=== PATIENT | male | born 1975 | race African-American/Black ===

== ENCOUNTER 2022-03-10 06:56 | Inpatient (IN) | payer BC ==
[~2022-03-10] VITALS: Ht 182.9 cm; Wt 112.5 kg
[2022-03-10 07:35] LABS: APPEARANCE,URINE CLEAR (CLEAR); BILIRUBIN,URINE NEGATIVE (NEGATIVE); COLOR,URINE LIGHT-YELLOW (YELLOW); GLUCOSE, URINE (UA) TRACE mg/dL (NEGATIVE); KETONES,URINE NEGATIVE (NEGATIVE); LEUKOCYTE ESTERASE ,URINE NEGATIVE Leu/uL (NEGATIVE); NITRATE,URINE NEGATIVE (NEGATIVE); OCCULT BLOOD,URINE NEGATIVE (NEGATIVE); PROTEIN,URINE 10 mg/dL (NEGATIVE); UROBILINOGEN,URINE 0.2 mg/dL (0.2-1.0)
[2022-03-10 07:40] LABS: MUCUS,URINE RARE LPF (None Seen); RBC,URINE 0-1 /HPF (0-1); SQUAMOUS EPITHELIAL CELL,UR RARE /HPF (0-2)
[2022-03-10] MEDS ORDERED: LORAZEPAM 2 MG/ML 1 ML VIAL IVP ONE ×2 (08:00→10:30)
[2022-03-10] MEDS ORDERED: NICARDIPINE 25MG INJ 50 MG in 0.9% NACL 250ML 230 ML IV SCH (08:00)
[2022-03-10] MEDS ORDERED: MORPHINE 4 MG SYG IVP ONE (08:00)
[2022-03-10] MEDS ORDERED: PROMETHAZINE HCL 25 MG/ML 1ML AMPULE SCH (08:00)
[2022-03-10 08:25] LABS: BASOPHILS % (AUTO) 0.6 % (0.0-5.0); EOSINOPHILS % (AUTO) 5.3 % (0.0-8.0); HEMATOCRIT 40.3 % (42-54); LYMPHOCYTES % (AUTO) 42.4 % (21.0-51.0); MEAN CORPUSCULAR HEMOGLOBIN 29.2 pg (27.0-33.0); MEAN CORPUSCULAR HGB CONC 33.7 g/dL (32.0-36.0); MEAN CORPUSCULAR VOLUME 86.5 fL (79-99); MONOCYTES % (AUTO) 5.5 % (3.0-13.0); PLATELET COUNT (AUTO) 134 K/uL (130-400); RED BLOOD CELL COUNT(AUTO) 4.66 MIL/uL (4.50-6.20); RED CELL DISTRIBUTION WIDTH 14.2 % (11.0-15.5); WHITE BLOOD COUNT (AUTO) 4.9 K/uL (4.8-10.8)
[2022-03-10] MEDS ORDERED: DiphenhydrAMINE HCL 50 MG/ML VIAL IV ONE ×2 (08:30→16:00)
[2022-03-10 08:38] LABS: CREATININE 2.7 mg/dL (0.5-1.5); POTASSIUM 3.4 mmol/L (3.5-5.1)
[2022-03-10 08:43] LABS: ALBUMIN 3.5 g/dL (3.5-5.0); TOTAL PROTEIN, SERUM 7.1 g/dL (6.0-8.3)
[2022-03-10] MEDS: POLYETHYLENE GLYCOL 3350 17 GM POWD.PACK PO SCH ×3 (13:00→15:12)
[2022-03-10] MEDS ORDERED: ONDANSETRON 4MG INJ IV PRN (13:00)
[2022-03-10] MEDS: LUBIPROSTONE 24 MCG CAP PO SCH ×2 (13:00→15:11)
[2022-03-10] MEDS ORDERED: ACETAMINOPHEN 325 MG TAB PO PRN ×2 (13:00)
[2022-03-10] MEDS ORDERED: POTASSIUM CHLORIDE 10% ELIXIR 20 MEQ/15 ML UDCUP PO PRN (13:30)
[2022-03-10] MEDS ORDERED: KCL 20 MEQ ERTAB PO PRN (13:30)
[2022-03-10] MEDS ORDERED: POTASSIUM CHLORIDE 10MEQ/100ML 100 ML IV PRN (13:30)
[2022-03-10] MEDS ORDERED: LIDOCAINE HCL-MPF 1% 2ML VIAL IV PRN (13:30)
[2022-03-10] MEDS ORDERED: NIFEDIPINE ER 30 MG TAB PO SCH ×2 (13:30→13:45)
[2022-03-10 13:52] LABS: HEMOGLOBIN A1C 9.4 % (4.0-6.0)
[2022-03-10 14:20] LABS: MAGNESIUM 1.9 mg/dL (1.80-2.40); THYROID STIMULATING HORMONE 1.06 uIU/mL (0.36-3.74)
[2022-03-10] MEDS ORDERED: MORPHINE 2 MG SYG IVP PRN (15:00)
[2022-03-10 17:00] VITALS: BP 173/108
[2022-03-10] MEDS ORDERED: LABETALOL HCL 200 MG TABLET PO SCH (21:00)
== END 2022-03-10 17:28 | disposition left against medical advice (07) | DRG 683 ==
LOC: EDH 06:56 → EDHIP 12:57
PROVIDERS: ADMIT Internal Medicine; ATTEND Internal Medicine
DX: N17.9 Acute kidney failure, unspecified (principal); E87.1 Hypo-osmolality and hyponatremia; I16.0 Hypertensive urgency; R07.89 Other chest pain; E11.22 Type 2 diabetes mellitus with diabetic chronic kidney disease; E11.65 Type 2 diabetes mellitus with hyperglycemia; E87.6 Hypokalemia; F41.9 Anxiety disorder, unspecified; I12.9 Hypertensive chronic kidney disease with stage 1 through stage 4 chronic kidney disease, or unspecified chronic kidney disease; K56.41 Fecal impaction; N18.9 Chronic kidney disease, unspecified; N40.0 Benign prostatic hyperplasia without lower urinary tract symptoms; Z87.442 Personal history of urinary calculi; Z88.8 Allergy status to other drugs, medicaments and biological substances
CPT/HCPCS: 36415; 71045; 74176; 80053; 81001; 83036; 83735; 83880; 84443; 84484; 85025; 93005; G0378; J1200; J2060; J2270; J2550; J3490; J7050

== ENCOUNTER 2023-02-09 21:08 | Inpatient (IN) | payer BC, OTHER ==
[~2023-02-09] VITALS: Ht 182.9 cm; Wt 120.9 kg
[2023-02-09 22:44] LABS: APPEARANCE,URINE CLEAR (CLEAR); BILIRUBIN,URINE NEGATIVE (NEGATIVE); COLOR,URINE LIGHT-YELLOW (YELLOW); GLUCOSE, URINE (UA) >=1000 mg/dL (NEGATIVE); KETONES,URINE NEGATIVE (NEGATIVE); LEUKOCYTE ESTERASE ,URINE 500 Leu/uL (NEGATIVE); NITRATE,URINE NEGATIVE (NEGATIVE); OCCULT BLOOD,URINE SMALL (NEGATIVE); PROTEIN,URINE NEGATIVE (NEGATIVE); UROBILINOGEN,URINE 0.2 mg/dL (0.2-1.0)
[2023-02-09 22:47] LABS: ADD UA MICROSCOPIC YES
[2023-02-09 22:49] LABS: RBC,URINE 26-50 /HPF (0-1); SQUAMOUS EPITHELIAL CELL,UR RARE /HPF (0-2); WBC,URINE 51-100 /HPF (0-1)
[2023-02-09 22:54] LABS: BASOPHILS # (AUTO) 0.02 K/uL (0.00-0.20); BASOPHILS % (AUTO) 0.3 % (0.0-5.0); EOSINOPHILS # (AUTO) 0.04 K/uL (0.00-0.70); EOSINOPHILS % (AUTO) 0.5 % (0.0-8.0); HEMATOCRIT 44.2 % (42-54); IMMATURE GRANULOCYTE ABSOLUTE 0.04 K/uL (0-1); LYMPHOCYTES # (AUTO) 1.3 K/uL (1.0-4.8); LYMPHOCYTES % (AUTO) 17.9 % (21.0-51.0); MEAN CORPUSCULAR HEMOGLOBIN 30.2 pg (27.0-33.0); MEAN CORPUSCULAR HGB CONC 33.3 g/dL (32.0-36.0); MEAN CORPUSCULAR VOLUME 90.8 fL (79-99); MONOCYTES # (AUTO) 0.4 K/uL (0.1-1.0); MONOCYTES % (AUTO) 5.4 % (3.0-13.0); NEUTROPHILS # (AUTO) 5.6 K/uL (1.8-7.7); NEUTROPHILS % (AUTO) 75.4 % (40.0-77.0); PLATELET COUNT (AUTO) 159 K/uL (130-400); RED BLOOD CELL COUNT(AUTO) 4.87 MIL/uL (4.50-6.20); RED CELL DISTRIBUTION WIDTH 12.9 % (11.0-15.5); WHITE BLOOD COUNT (AUTO) 7.4 K/uL (4.8-10.8)
[2023-02-09 23:05] LABS: CREATININE 2.4 mg/dL (0.5-1.5); POTASSIUM 5.6 mmol/L (3.5-5.1)
[2023-02-09 23:07] LABS: INR < 0.93 (0.85-1.15); PROTHROMBIN TIME 10.7 SEC (9.6-11.6)
[2023-02-09 23:08] LABS: PARTIAL THROMBOPLASTIN TIME 29.6 SEC (26.3-35.5)
[2023-02-09 23:12] LABS: ALBUMIN 3.5 g/dL (3.5-5.0); BILIRUBIN,TOTAL 0.6 mg/dL (0.2-1.0); TOTAL PROTEIN, SERUM 7.6 g/dL (6.0-8.3)
[2023-02-09] MEDS ORDERED: CEFTRIAXONE 1G VIAL IVPB ONE (23:30)
[2023-02-09] MEDS ORDERED: KETOROLAC 30MG VIAL (30MG/ML) IVP ONE (23:30)
[2023-02-09 23:51] LABS: B-TYPE NATRIURETIC PEPTIDE 59 pg/mL (0-100)
[2023-02-10] MEDS ORDERED: HYDROMORPHONE 0.5 MG SYG (0.5MG/0.5ML) IVP ONE (00:30)
[2023-02-10] MEDS ORDERED: SOLU-MEDROL 125MG VIAL IVP ONE (00:30)
[2023-02-10] MEDS ORDERED: DiphenhydrAMINE HCL 50 MG/ML VIAL IV ONE (00:30)
[2023-02-10] MEDS ORDERED: LABETALOL 20MG VIAL IV ONE ×2 (01:30→02:30)
[2023-02-10] MEDS: HYDROMORPHONE 0.5 MG SYG (0.5MG/0.5ML) IVP PRN ×2 (04:52→08:58)
[2023-02-10] MEDS ORDERED: ONDANSETRON 4MG INJ IV PRN (05:30)
[2023-02-10] MEDS ORDERED: LEVOFLOXACIN 500 MG/D5W 100 ML 100 ML IV SCH (05:30)
[2023-02-10] MEDS ORDERED: NITROGLYCERIN 0.4 MG SL TAB SL PRN ×2 (05:30→06:00)
[2023-02-10] MEDS ORDERED: 0.9%NACL 1000ML 1,000 ML IV SCH (05:30)
[2023-02-10 06:15] VITALS: BP 174/118; PULSE 87; RESP 18
[2023-02-10] MEDS: LABETALOL 20MG VIAL IV PRN ×2 (06:45→11:28)
[2023-02-10 06:54] LABS: HEMOGLOBIN A1C 12.2 % (4.0-6.0)
[2023-02-10] MEDS ORDERED: [UNRECOGNIZED DRUG - REMARK] SQ (06:54)
[2023-02-10] MEDS ORDERED: CARV25TA PO (06:54)
[2023-02-10] MEDS ORDERED: FURO80TA87 PO (06:54)
[2023-02-10] MEDS ORDERED: HYDR20TA PO ×2 (06:54)
[2023-02-10] MEDS ORDERED: TOPI100T31 PO (06:54)
[2023-02-10] MEDS ORDERED: APIX5TAB PO (06:54)
[2023-02-10] MEDS ORDERED: NIFE-40 PO (06:54)
[2023-02-10] MEDS ORDERED: ALPR2TAB2 PO (06:54)
[2023-02-10 06:59] LABS: ALBUMIN 3.4 g/dL (3.5-5.0); BILIRUBIN,TOTAL 0.6 mg/dL (0.2-1.0); CREATININE 2.6 mg/dL (0.5-1.5); MAGNESIUM 1.8 mg/dL (1.80-2.40); POTASSIUM 5.5 mmol/L (3.5-5.1); THYROID STIMULATING HORMONE 0.3 uIU/mL (0.36-3.74); TOTAL PROTEIN, SERUM 7.7 g/dL (6.0-8.3)
[2023-02-10 07:28] LABS: BASOPHILS # (AUTO) 0.01 K/uL (0.00-0.20); BASOPHILS % (AUTO) 0.1 % (0.0-5.0); HEMATOCRIT 41.4 % (42-54); IMMATURE GRANULOCYTE ABSOLUTE 0.05 K/uL (0-1); LYMPHOCYTES # (AUTO) 0.7 K/uL (1.0-4.8); LYMPHOCYTES % (AUTO) 7.7 % (21.0-51.0); MEAN CORPUSCULAR HEMOGLOBIN 30.1 pg (27.0-33.0); MEAN CORPUSCULAR HGB CONC 34.1 g/dL (32.0-36.0); MEAN CORPUSCULAR VOLUME 88.5 fL (79-99); MONOCYTES # (AUTO) 0.1 K/uL (0.1-1.0); MONOCYTES % (AUTO) 0.7 % (3.0-13.0); NEUTROPHILS # (AUTO) 8.3 K/uL (1.8-7.7); NEUTROPHILS % (AUTO) 90.9 % (40.0-77.0); PLATELET COUNT (AUTO) 146 K/uL (130-400); RED BLOOD CELL COUNT(AUTO) 4.68 MIL/uL (4.50-6.20); RED CELL DISTRIBUTION WIDTH 12.9 % (11.0-15.5); WHITE BLOOD COUNT (AUTO) 9.1 K/uL (4.8-10.8)
[2023-02-10] MEDS ORDERED: INSULIN HUMULIN R 100 UNIT/ML 3ML SQ SCH ×2 (07:30→11:30)
[2023-02-10 08:00] VITALS: O2SAT 96
[2023-02-10 08:10] VITALS: BP 166/97; PULSE 80; RESP 18
[2023-02-10] MEDS ORDERED: FAMOTIDINE 20MG VIAL IV SCH (09:00)
[2023-02-10] MEDS ORDERED: PHARMACY COMMUNICATION MISC SCH (09:00)
[2023-02-10] MEDS ORDERED: GLUCAGON 1MG KIT 1 MG ML IM PRN (10:00)
[2023-02-10] MEDS ORDERED: DEXTROSE 50%-WATER 50 ML DISP.SYRIN IV PRN (10:00)
[2023-02-10] MEDS ORDERED: DIPHENHYDRAMINE HCL 25 MG CAPSULE PO PRN (10:30)
[2023-02-10 11:28] VITALS: BP 219/139
== END 2023-02-10 11:10 | disposition left against medical advice (07) | DRG 690 ==
LOC: EDH 21:08 → EDHIP 21:09 → 2AH 02-10 05:55
PROVIDERS: ADMIT Internal Medicine; ATTEND Internal Medicine
DX: N39.0 Urinary tract infection, site not specified (principal); E11.65 Type 2 diabetes mellitus with hyperglycemia; E26.9 Hyperaldosteronism, unspecified; E87.5 Hyperkalemia; G89.29 Other chronic pain; I16.0 Hypertensive urgency; N20.0 Calculus of kidney; N40.0 Benign prostatic hyperplasia without lower urinary tract symptoms; F41.9 Anxiety disorder, unspecified; I12.9 Hypertensive chronic kidney disease with stage 1 through stage 4 chronic kidney disease, or unspecified chronic kidney disease; E11.22 Type 2 diabetes mellitus with diabetic chronic kidney disease; N18.9 Chronic kidney disease, unspecified; Z79.01 Long term (current) use of anticoagulants; Z87.442 Personal history of urinary calculi; Z90.49 Acquired absence of other specified parts of digestive tract; Z88.1 Allergy status to other antibiotic agents; Z88.5 Allergy status to narcotic agent; Z88.8 Allergy status to other drugs, medicaments and biological substances
CPT/HCPCS: 36415; 71045; 74176; 80053; 81001; 82550; 83036; 83735; 83880; 84443; 84484; 85025; 85610; 85730; 87088; 93005; G0378; J0696; J1170; J1200; J1885; J1956; J2930; J3490

== ENCOUNTER 2023-12-10 11:24 | Emergency (ER) | payer OTHER ==
[~2023-12-10] VITALS: Ht 182.9 cm; Wt 128.8 kg
[~2023-12-10 11:24] MED LIST: AMIO200T68 PO; APIX5TAB PO; CARV25TA PO; FURO80TA87 PO; HYDR-4419 PO; HYDR20TA24 PO; LORA2TAB80 PO; NIFE-40 PO; TOPI100T31 PO; [UNRECOGNIZED DRUG - REMARK] SQ
[2023-12-10 11:32] VITALS: BP 154/120; TEMP 97.9
[2023-12-10] MEDS: morPHINE 2 MG SYG IVP ONE ×2 (12:35→14:29)
[2023-12-10] MEDS: ondanSETRON 4MG INJ IVP ONE (12:35)
[2023-12-10 12:49] LABS: BASOPHILS # (AUTO) 0.03 K/uL (0.00-0.20); BASOPHILS % (AUTO) 0.5 % (0.0-5.0); EOSINOPHILS # (AUTO) 0.03 K/uL (0.00-0.70); EOSINOPHILS % (AUTO) 0.5 % (0.0-8.0); HEMATOCRIT 39.6 % (42-54); IMMATURE GRANULOCYTE ABSOLUTE 0.02 K/uL (0-1); LYMPHOCYTES # (AUTO) 2.1 K/uL (1.0-4.8); LYMPHOCYTES % (AUTO) 32.2 % (21.0-51.0); MEAN CORPUSCULAR HEMOGLOBIN 30.3 pg (27.0-33.0); MEAN CORPUSCULAR HGB CONC 34.1 g/dL (32.0-36.0); MEAN CORPUSCULAR VOLUME 88.8 fL (79-99); MONOCYTES # (AUTO) 0.6 K/uL (0.1-1.0); MONOCYTES % (AUTO) 8.8 % (3.0-13.0); NEUTROPHILS # (AUTO) 3.8 K/uL (1.8-7.7); NEUTROPHILS % (AUTO) 57.7 % (40.0-77.0); PLATELET COUNT (AUTO) 199 K/uL (130-400); RED BLOOD CELL COUNT(AUTO) 4.46 MIL/uL (4.50-6.20); WHITE BLOOD COUNT (AUTO) 6.5 K/uL (4.8-10.8)
[2023-12-10] MEDS: FAMOTIDINE 20MG VIAL IV ONE (12:53)
[2023-12-10] MEDS: DiphenhydrAMINE HCL 50 MG/ML VIAL IV ONE ×2 (12:54→14:29)
[2023-12-10 12:57] LABS: POTASSIUM 4.7 mmol/L (3.5-5.1)
[2023-12-10 13:32] LABS: APPEARANCE,URINE CLEAR (CLEAR); BILIRUBIN,URINE NEGATIVE (NEGATIVE); COLOR,URINE LIGHT-YELLOW (YELLOW); GLUCOSE, URINE (UA) NEGATIVE (NEGATIVE); KETONES,URINE NEGATIVE (NEGATIVE); LEUKOCYTE ESTERASE ,URINE NEGATIVE Leu/uL (NEGATIVE); NITRATE,URINE NEGATIVE (NEGATIVE); OCCULT BLOOD,URINE NEGATIVE (NEGATIVE); PH,URINE 5.5 (5.0-8.0); PROTEIN,URINE NEGATIVE (NEGATIVE); UROBILINOGEN,URINE 0.2 mg/dL (0.2-1.0)
[2023-12-10 13:38] LABS: ADD UA MICROSCOPIC NO
[2023-12-10 14:00] VITALS: PULSE 98; RESP 20
== END 2023-12-10 14:44 | disposition home or self-care (01) ==
LOC: EDH 11:24
DX: G89.29 Other chronic pain (principal); R10.84 Generalized abdominal pain; I12.9 Hypertensive chronic kidney disease with stage 1 through stage 4 chronic kidney disease, or unspecified chronic kidney disease; E11.22 Type 2 diabetes mellitus with diabetic chronic kidney disease; N18.4 Chronic kidney disease, stage 4 (severe); E11.65 Type 2 diabetes mellitus with hyperglycemia; E87.1 Hypo-osmolality and hyponatremia; F41.9 Anxiety disorder, unspecified; I48.91 Unspecified atrial fibrillation; Z79.01 Long term (current) use of anticoagulants; Z88.1 Allergy status to other antibiotic agents; Z88.5 Allergy status to narcotic agent; Z90.49 Acquired absence of other specified parts of digestive tract; Z98.890 Other specified postprocedural states
CPT/HCPCS: 99284; 96374; 96375; 80048; 85025; 81003; 36415; 96376; 93005; J1200 ×2; J3490; J2270 ×3; J2405

== ENCOUNTER 2024-07-26 21:36 | Emergency (ER) | payer OTHER ==
[~2024-07-26] VITALS: Ht 182.9 cm; Wt 128.8 kg
[2024-07-26 21:58] LABS: ADD UA MICROSCOPIC YES; APPEARANCE,URINE CLEAR (CLEAR); BILIRUBIN,URINE NEGATIVE (NEGATIVE); COLOR,URINE COLORLESS (YELLOW); GLUCOSE, URINE (UA) >=1000 mg/dL (NEGATIVE); KETONES,URINE NEGATIVE (NEGATIVE); LEUKOCYTE ESTERASE ,URINE NEGATIVE Leu/uL (NEGATIVE); NITRATE,URINE NEGATIVE (NEGATIVE); OCCULT BLOOD,URINE NEGATIVE (NEGATIVE); PROTEIN,URINE NEGATIVE (NEGATIVE); UROBILINOGEN,URINE 0.2 mg/dL (0.2-1.0)
[2024-07-26 21:59] LABS: MUCUS,URINE RARE LPF (None Seen); RBC,URINE 0-1 /HPF (0-1); SQUAMOUS EPITHELIAL CELL,UR RARE /HPF (0-2); WBC,URINE 0-1 /HPF (0-1)
--- NOTE | 2024-07-26 22:04 | EKG ---
[facility] Test Date: 2024-07-26 Test Time: 22:01:47 Pat Name: JET CASTILLO Department: ED Room: Gender: M Disability Counselor: [id number] : [id number] Requested By: OPAL RUGGIERO Order Number: [id number] Reading MD: Shimon Field Measurements Intervals [place] Rate: 111 P: 51 NV: 175 QRS: 13 QRSD: 81 T: 121 QT: 340 QTc: 461 Interpretive Statements Sinus tachycardia Anterior infarct, old Compared to ECG 12/10/2023 11:38:16 No significant changes Electronically Signed On 07-27-2024 16:24:30 CDT by Shimon Field Please click the below link to view image of tracing.
[2024-07-26 22:08] LABS: BASOPHILS # (AUTO) 0.03 K/uL (0.00-0.20); BASOPHILS % (AUTO) 0.5 % (0.0-5.0); EOSINOPHILS # (AUTO) 0.03 K/uL (0.00-0.70); EOSINOPHILS % (AUTO) 0.5 % (0.0-8.0); HEMATOCRIT 38.5 % (42-54); IMMATURE GRANULOCYTE ABSOLUTE 0.05 K/uL (0-1); LYMPHOCYTES # (AUTO) 1.4 K/uL (1.0-4.8); LYMPHOCYTES % (AUTO) 21.3 % (21.0-51.0); MEAN CORPUSCULAR HEMOGLOBIN 30.7 pg (27.0-33.0); MEAN CORPUSCULAR HGB CONC 33.8 g/dL (32.0-36.0); MONOCYTES # (AUTO) 0.6 K/uL (0.1-1.0); MONOCYTES % (AUTO) 9.1 % (3.0-13.0); NEUTROPHILS # (AUTO) 4.3 K/uL (1.8-7.7); NEUTROPHILS % (AUTO) 67.8 % (40.0-77.0); PLATELET COUNT (AUTO) 181 K/uL (130-400); RED BLOOD CELL COUNT(AUTO) 4.23 MIL/uL (4.50-6.20); RED CELL DISTRIBUTION WIDTH 13.7 % (11.0-15.5); WHITE BLOOD COUNT (AUTO) 6.4 K/uL (4.8-10.8)
[2024-07-26 22:29] LABS: BILIRUBIN,TOTAL 0.6 mg/dL (0.2-1.0); TOTAL PROTEIN, SERUM 7.8 g/dL (6.0-8.3)
[2024-07-26] MEDS: LAbetaLOL 20MG SYG IV ONE (22:38)
[2024-07-26] MEDS: morPHINE 2 MG SYG IVP ONE (22:39)
[2024-07-26 22:50] LABS: BILIRUBIN,DIRECT 0.1 mg/dL (0.0-0.3)
[2024-07-26 22:50] LABS: AMPHET/METH SCREEN,URINE NEGATIVE (NEGATIVE); BARBITURATE SCREEN, URINE NEGATIVE (NEGATIVE); BENZODIAZEPINES SCREEN,URINE POSITIVE (NEGATIVE); CANNABINOID SCREEN,URINE NEGATIVE (NEGATIVE); COCAINE SCREEN,URINE NEGATIVE (NEGATIVE); OPIATE SCREEN,URINE NEGATIVE (NEGATIVE); PHENCYCLIDINE SCREEN,URINE NEGATIVE (NEGATIVE)
[2024-07-26] MEDS: 0.9%NACL 1000ML 2,000 ML IV ONE (22:54)
[2024-07-26] MEDS: DiphenhydrAMINE HCL 50 MG/ML VIAL IV ONE ×2 (22:57→23:23)
[2024-07-26 23:03] LABS: ABG BASE EXCESS -5.7 mmol/L (-2.0-3.0); ABG HCO3 17.8 mmol/L (21.0-28.0); ABG OXYGEN SATURATION 97.8 % (94.0-98.0); ABG PCO2 30 mmHg (35-48); ABG PH 7.392 (7.350-7.450); PO2, ARTERIAL BG 103.2 mmHg (83.0-108.0); VENT MODE, BG RA,21 (ROOM AIR)
[2024-07-26 23:50] LABS: CREATININE 3.4 mg/dL (0.5-1.3); POTASSIUM 4.6 mmol/L (3.5-5.1)
[2024-07-27] MEDS: INSULIN humuLIN R 100 UNIT/ML 3ML IV ONE (00:47)
[2024-07-27] MEDS: morPHINE 2 MG SYG IVP ONE (01:18)
[2024-07-27] MEDS: INSULIN humuLIN R 100 UNIT/ML 3ML SQ ONE (02:01)
--- NOTE | 2024-07-27 02:31 | ERN ---
General Chief Complaint: Multiple Complaints Stated Complaint: HIGH BLOOD PRESSURE, HIGH BLOOD SUGAR Time Seen by MD: 21:38 Time Seen by Midlevel: 21:38 Source: patient History of Present Illness Initial Comments The patient is a 48-year-old male with a past medical history of atrial fibrillation, type 2 diabetes, hypertension, UT, DKA, and HHS who presents to the emergency department with multiple complaints. The patient states he had a blood pressure of 248/160 today. His glucose was over 600 when he checked it at home. He reports having one episode of vomiting. Allergies: Coded Allergies: nitroglycerin (Unverified Allergy, Severe, ANAPHYLAXIS, 12/05/21) ceftriaxone (Unverified Allergy, Mild, 02/10/23) codeine (Unverified Allergy, Mild, HIVES, 12/05/21) hydralazine (Unverified Allergy, Mild, HIVES, 12/05/21) GERALDO Inhibitors (Unverified Allergy, Unknown, 03/10/22) ketamine (Unverified Allergy, Unknown, 02/09/23) metoclopramide (Unverified Allergy, Unknown, HIVES, 12/05/21) ondansetron (Unverified Allergy, Unknown, 12/05/21) ANXIETY prochlorperazine (Unverified Allergy, Unknown, 12/05/21) ANXIETY Home Meds Reported Medications Hydrocortisone (Hydrocortisone) 20 Mg Tablet, 20 MG PO DAILY, TAB 09/15/23 Hydrocortisone (Hydrocortisone) 10 Mg Tablet, 10 MG PO HS, TAB 09/15/23 Lorazepam (Ativan) 2 Mg Tablet, 2 MG PO BID PRN for ANXIETY/AGITATION, TAB 09/15/23 Amiodarone HCl (Amiodarone HCl) 200 Mg Tablet, 200 MG PO DAILY, TAB 09/15/23 [Unknown Insulin Pen] No Conflict Check, 60 SQ DAILY 02/10/23 Nifedipine (Nifedipine ER) 30 Mg Tab.er.24, 30 MG PO BID 02/10/23 Topiramate (Topamax) 100 Mg Tablet, 100 MG PO BID, TAB 02/10/23 Apixaban (Eliquis) 5 Mg Tablet, 5 MG PO BID, TAB 02/10/23 Furosemide (Lasix) 80 Mg Tablet, 80 MG PO BID, TAB 02/10/23 Carvedilol (Carvedilol) 25 Mg Tablet, 25 MG PO BID, TAB 02/10/23 Past Medical History Past Medical History: A-Fib, Diabetes-Type II, Hypertension, UT, Other Medical History Other: DKA/HHS, RUBEN'S DISEASE, PANIC ATTACKS Past Surgical History: Other Surgical History Other: BILATERAL ADRENAL GLAND REMOVAL, CARDIAC ABLATION X4, CARDIOVERSION Social History Social History: Negative, Lives with family ROS Dictation CONSTITUTIONAL: Negative except for HPI HEAD/FACE: Negative except for HPI EENT: Negative except for HPI RESPIRATORY: Negative except for HPI GASTROINTESTINAL/ABDOMINAL: Negative except for HPI GENITOURINARY: Negative except for HPI MUSCULOSKELETAL: Negative except for HPI INTEGUMENTARY: Negative except for HPI NEUROLOGICAL/PSYCH: Negative except for HPI HEMATOLOGIC/LYMPHATIC: Negative except for HPI All Systems Negative, Except as noted above. 13 point review of systems assessed and all negative except for above. Physical Exam Physical Exam Dictation Vital Signs reviewed General Appearance: Alert, oriented x 3, no acute distress, well developed, nourished. Head and Face: non-traumatic. Eyes: PERRL, pink conjunctivas, eyelid no trauma, anterior chamber with arcus senilis. Ears: Pinnas intact and no signs of trauma or erythema ear canals clear and no discharge TM no erythema Nose: No discharge, no bleeding. Oropharynx: Mouth normal, tongue pink, pharynx clear,no erythema, tonsils no exudates, no abscesses noted, mucous membrane moist Neck: Supple, non-tender, no thyromegaly, no masses, no JVD, no bruits Breast:Deferred Chest:No tenderness, no crepitus, no paradoxical movement, no retractions Lungs:Clear, well-ventilated, symmetric, no rales, no wheezing, no rhonchi, no stridor, good breath sounds bilaterally Heart: Regular rate, regular rhythm, no murmur, no gallops Vascular: no peripheral edema, Abdomen: Soft, positive bowel sounds, nondistended, no guarding, nontender, no rebound, no masses no hepatomegaly, no splenomegaly, no Loya's sign, no hernias. Rectal: Deferred Genital: Deferred Neurological: Normal speech, motor function intact, sensory function intact Musculoskeletal: Neck nontender, full range of motion, back nontender, full range of motion, Extremities: nontender, full range of motion Skin: Color pink, dry, no turgor, no rash, no lacerations, no abrasions, no contusions. Lymphatic: Deferred Results Laboratory and Microbiology Lab and Micro Result Laboratory Tests Test 07/26/24 21:40 07/26/24 21:54 07/26/24 21:55 07/26/24 23:01 Urine Color COLORLESS (YELLOW) Urine Appearance CLEAR (CLEAR) Urine pH 5.0 (5.0-8.0) Urine Specific Brady 1.025 (1.001-1.031) Urine Protein NEGATIVE mg/dL (NEGATIVE) Urine Glucose (UA) >=1000 mg/dL (NEGATIVE) H Urine Ketones NEGATIVE mg/dL (NEGATIVE) Urine Occult Blood NEGATIVE (NEGATIVE) Urine Nitrate NEGATIVE (NEGATIVE) Urine Bilirubin NEGATIVE mg/dL (NEGATIVE) Urine Urobilinogen 0.2 mg/dL (0.2-1.0) Urine Leukocyte Esterase NEGATIVE Bela/uL Urine RBC 0-1 /HPF (0-1) Urine WBC 0-1 /HPF (0-1) Urine Squamous Epithelial Cells RARE /HPF (0-2) Urine Bacteria None /HPF (None Seen) Urine Opiates Screen NEGATIVE (NEGATIVE) Urine Barbiturates Screen NEGATIVE (NEGATIVE) Urine Phencyclidine Screen NEGATIVE (NEGATIVE) Urine Amphetamines Screen NEGATIVE (NEGATIVE) Urine Benzodiazepines Screen POSITIVE (NEGATIVE) H Urine Cocaine Screen NEGATIVE (NEGATIVE) Urine Marijuana (THC) Screen NEGATIVE (NEGATIVE) Whole Blood Glucose > 600 MG/DL (70-110) *H Bedside Glucose Comment Notified Nurse White Blood Count 6.4 K/uL (4.8-10.8) Red Blood Count 4.23 MIL/uL (4.50-6.20) L Hemoglobin 13.0 g/dL (14.0-18.0) L Hematocrit 38.5 % (42-54) L Mean Corpuscular Volume 91.0 fL (79-99) Mean Corpuscular Hemoglobin 30.7 pg (27.0-33.0) Mean Corpuscular Hemoglobin Concent 33.8 g/dL (32.0-36.0) Red Cell Distribution Width 13.7 % (11.0-15.5) Platelet Count 181 K/uL (130-400) Mean Platelet Volume 11.2 fL (7.5-10.5) H Immature Granulocyte % (Auto) 0.8 % (0-1) Neutrophils (%) (Auto) 67.8 % (40.0-77.0) Lymphocytes (%) (Auto) 21.3 % (21.0-51.0) Monocytes (%) (Auto) 9.1 % (3.0-13.0) Eosinophils (%) (Auto) 0.5 % (0.0-8.0) Basophils (%) (Auto) 0.5 % (0.0-5.0) Neutrophils # (Auto) 4.3 K/uL (1.8-7.7) Lymphocytes # (Auto) 1.4 K/uL (1.0-4.8) Monocytes # (Auto) 0.6 K/uL (0.1-1.0) Eosinophils # (Auto) 0.03 K/uL (0.00-0.70) Basophils # (Auto) 0.03 K/uL (0.00-0.20) Absolute Immature Granulocyte (auto 0.05 K/uL (0-1) Nucleated Red Blood Cells 0.0 % (0.0-0.19) Whole Blood Ketones Quantitative 0.2 mmol/L (0.0-0.6) Total Bilirubin 0.6 mg/dL (0.2-1.0) Direct Bilirubin 0.1 mg/dL (0.0-0.3) Aspartate Amino Transf (AST/SGOT) 31 U/L (10-37) Alanine Aminotransferase (ALT/SGPT) 43 U/L (12-78) Alkaline Phosphatase 121 U/L (50-136) Troponin I High Sensitivity 23 ng/L (4-75) Total Protein 7.8 g/dL (6.0-8.3) Albumin 3.0 g/dL (3.5-5.0) L Lipase 110 U/L (16-77) H Blood Gas Specimen Type Arterial Arterial Blood pH 7.392 (7.350-7.450) Arterial Blood Partial Pressure CO2 30 mmHg (35-48) L Arterial Blood Partial Pressure O2 103.2 mmHg (83.0-108.0) Arterial Blood HCO3 17.8 mmol/L (21.0-28.0) L Arterial Blood Oxygen Saturation 97.8 % (94.0-98.0) Arterial Blood Base Excess -5.7 mmol/L (-2.0-3.0) L Blood Gas Temperature 37.0 CELSIUS (35.5-37.0) Blood Gas Vent Mode RA,21 (ROOM AIR) FiO2 21.0 % Blood Gas Specimen Comment RR,RN ADEN Test 07/26/24 23:15 07/27/24 01:21 Sodium Level 132 mmol/L (136-145) L Potassium Level 4.6 mmol/L (3.5-5.1) Chloride Level 97 mmol/L (101-111) L Carbon Dioxide Level 22 mmol/L (21-32) Blood Urea Nitrogen 37 mg/dL (7-18) H Creatinine 3.4 mg/dL (0.5-1.3) H Glomerular Filtration Rate Calc 21 mL/min (>90) Random Glucose 588 mg/dL (70-105) *H Total Calcium 9.3 mg/dL (8.5-10.1) Total Creatine Kinase 53 U/L (21-232) # Whole Blood Glucose 379 MG/DL (70-110) H Labs Reviewed?: Yes MDM MDM: Differential diagnosis: DKA, HHS, uncontrolled diabetes There are no social concerns with this patient. Prescription drug management Prescriptions will include: None Medical management and examination interpretation discussions were had by me with other qualified healthcare professionals as indicated for the patient's care. ED Course Orders Procedure Category Date Status Time Vital Signs Per CPOE 07/26/24 Transmitted Routine 21:38 Saline Lock Iv CPOE 07/26/24 Transmitted 21:38 Cbc With Differential LAB 07/26/24 Complete 21:38 Lipase LAB 07/26/24 Complete 21:38 Urinalysis Profile LAB 07/26/24 Complete 21:38 12 Lead Ekg Tracing- EKG 07/26/24 Complete Technical 21:38 Troponin I High LAB 07/26/24 Complete Sensitivity 21:38 Hepatic Function Panel LAB 07/26/24 Complete 21:45 Ketone Blood LAB 07/26/24 Complete Quantitative 21:51 Basic Metabolic Panel LAB 07/26/24 Complete 21:38 Creatine Kinase, Total LAB 07/26/24 Complete 21:38 Arterial Blood Gas RT 07/26/24 Transmitted 22:25 Morphine 2mg Syg PHA 07/26/24 Complete (Morphine 2mg Syg) 22:30 Diphenhydramine Hcl PHA 07/26/24 Complete (Benadryl Inj) 22:30 Chest 1vw RAD 07/26/24 Taken 22:25 Labetalol 20mg Syg PHA 07/26/24 Complete (Trandate 20mg Syg) 22:30 Drug Screen Urine LAB 07/26/24 Complete 22:25 0.9%Nacl 1000ml (Ns PHA 07/26/24 Complete 1000ml) 23:00 Arterial Blood Gas LAB 07/26/24 Complete 23:01 Diphenhydramine Hcl PHA 07/26/24 Complete (Benadryl Inj) 23:30 Insulin Regular, PHA 07/27/24 Complete Human 3ml (Humulin R 00:30 Morphine 2mg Syg PHA 07/27/24 Complete (Morphine 2mg Syg) 01:00 Insulin Regular, PHA 07/27/24 Complete Human 3ml (Humulin R 02:00 Current Medications Medications (Trade) Dose Ordered Sig/Taylor Route PRN Reason Start Time Stop Time Status Last Admin Dose Admin Diphenhydramine HCl (BENAdryl INJ) 25 mg ONCE ONCE IV 07/26/24 22:30 07/26/24 22:31 DC 07/26/24 22:57 Diphenhydramine HCl (BENAdryl INJ) 25 mg ONCE ONCE IV 07/26/24 23:30 07/26/24 23:31 DC 07/26/24 23:23 Insulin Human Regular (humuLIN R 100 UNIT/ML 3ML) 5 unit ONCE ONCE SQ 07/27/24 02:00 07/27/24 02:01 DC 07/27/24 02:01 Insulin Human Regular (humuLIN R 100 UNIT/ML 3ML) 10 unit ONCE ONCE IV 07/27/24 00:30 07/27/24 00:31 DC 07/27/24 00:47 Labetalol HCl (TRANdate 20MG SYG) 10 mg ONCE ONCE IV 07/26/24 22:30 07/26/24 22:31 DC 07/26/24 22:38 Morphine Sulfate (morPHINE 2MG SYG) 2 mg ONCE ONCE IVP 07/26/24 22:30 07/26/24 22:34 DC 07/26/24 22:39 Morphine Sulfate (morPHINE 2MG SYG) 2 mg ONCE ONCE IVP 07/27/24 01:00 07/27/24 01:01 DC 07/27/24 01:18 Sodium Chloride 2,000 ml @ 0 mls/hr ONCE ONCE IV 07/26/24 23:00 07/26/24 23:01 DC 07/26/24 22:54 Vital Signs Date Time Temp Pulse Resp B/P (MAP) Pulse Ox O2 Delivery O2 Flow Rate FiO2 07/26/24 22:38 198/112 07/26/24 22:14 98.8 118 25 198/112 98 Room Air* 0 21 07/26/24 21:44 98.8 117 22 219/125 98 Room Air 0 DX & DISP Disposition: Discharge Departure Impression: Primary Impression: Uncontrolled diabetes mellitus with hyperglycemia Additional Impression: Chronic kidney disease Condition: Stable Additional Instructions: Your blood work today showed an elevated sugar. However, you are not in DKA. Please follow up with your primary care doctor for further evaluation. Referrals: SELF,REFERRAL (PCP) Time of Disposition: 02:30 I have reviewed the case, and I agree with, Diagnosis and Plan I performed the substantive portion of the visit. I have reviewed and personally made and approve the management plan that is documented in the note by myself or the TALIB. I acknowledge for responsibility for the patient's management plan. DOMITILA UNGER Jul 27, 2024 02:31
[2024-07-27 02:42] VITALS: BP 160/98; PULSE 82; RESP 18; TEMP 98.2; O2SAT 98
--- NOTE | 2024-07-27 08:29 | HMCIMG ---
Exam Type: CHEST 1VW Clinical Information: cp Comparison: None Findings: The lungs are clear of infiltrates. The heart is normal in size. The bony and soft tissue structures of the chest are unremarkable. Impression: Clear lungs.
== END 2024-07-27 02:43 | disposition home or self-care (01) ==
LOC: EDH 21:36
DX: E11.65 Type 2 diabetes mellitus with hyperglycemia (principal); I12.9 Hypertensive chronic kidney disease with stage 1 through stage 4 chronic kidney disease, or unspecified chronic kidney disease; E11.22 Type 2 diabetes mellitus with diabetic chronic kidney disease; N18.9 Chronic kidney disease, unspecified; I48.91 Unspecified atrial fibrillation; Z79.01 Long term (current) use of anticoagulants; Z79.899 Other long term (current) drug therapy; Z88.1 Allergy status to other antibiotic agents; Z88.5 Allergy status to narcotic agent
CPT/HCPCS: 99285; 96374; 96375 ×2; 71045; 82550; 80076; 84484; 80048; 82803; 80305; 83690; 85025; 82948 ×2; 82010; 36415; 93005; 36600; 81001; 96372; 96376; J1200 ×2; J2270 ×2; J1815 ×2